=== PATIENT | female | born 1950 | race Caucasian/White ===

== ENCOUNTER → 2020-03-27 | Outpatient (CLI) | payer MEDICARE | END | disposition home or self-care (01) | LOC: CFH 15:18 | PROVIDERS: ATTEND Internal Medicine Cardiovascular Disease | DX: Z13.6 Encounter for screening for cardiovascular disorders (principal); R00.2 Palpitations; E78.00 Pure hypercholesterolemia, unspecified; Z82.49 Family history of ischemic heart disease and other diseases of the circulatory system | CPT/HCPCS: 75571 ==